=== PATIENT | male | born 1985 | race Caucasian/White ===

== ENCOUNTER 2016-07-19 05:20 | Emergency (ER) | payer OTHER ==
[~2016-07-19] VITALS: Ht 180.3 cm; Wt 103.9 kg
[~2016-07-19 05:20] MED LIST: AMOX TR-K CLV1 EAC4 PO; EXTRA STRENGTH500 M1 PO; IBUPROFEN800 MG PO; TAMIFLU75 MG PO
[2016-07-19 06:32] VITALS: BP 112/70
== END 2016-07-19 06:34 | disposition home or self-care (01) ==
LOC: EME 05:20
DX: T81.31XA Disruption of external operation (surgical) wound, not elsewhere classified, initial encounter (principal); Y83.8 Other surgical procedures as the cause of abnormal reaction of the patient, or of later complication, without mention of misadventure at the time of the procedure; Z87.891 Personal history of nicotine dependence
CPT/HCPCS: 99281; 99283